=== PATIENT | female | born 1995 | race Caucasian/White ===

== ENCOUNTER 2016-07-03 20:06 | Emergency (ER) | payer MEDICARE | END 2016-07-03 23:18 | disposition home or self-care (01) | LOC: ER 20:06 | DX: R10.9 Unspecified abdominal pain (principal); R11.0 Nausea; G43.909 Migraine, unspecified, not intractable, without status migrainosus; Z98.51 Tubal ligation status | CPT/HCPCS: 36415; 96374; 96375 ==

== ENCOUNTER 2016-07-05 18:44 | Emergency (ER) | payer MEDICARE | END 2016-07-05 23:33 | disposition home or self-care (01) | LOC: ER 18:44 | DX: R10.12 Left upper quadrant pain (principal); D64.9 Anemia, unspecified; R11.0 Nausea; E07.9 Disorder of thyroid, unspecified; G43.909 Migraine, unspecified, not intractable, without status migrainosus | CPT/HCPCS: 36415; 96374; 96375; Q9963; Q9967 ==

== ENCOUNTER 2016-07-13 21:02 | Emergency (ER) | payer MEDICARE | END 2016-07-13 22:39 | disposition home or self-care (01) | LOC: ER 21:02 | DX: J20.9 Acute bronchitis, unspecified (principal); G43.909 Migraine, unspecified, not intractable, without status migrainosus; E07.9 Disorder of thyroid, unspecified ==

== ENCOUNTER 2016-07-20 20:52 | Emergency (ER) | payer MEDICARE | END 2016-07-20 22:42 | disposition home or self-care (01) | LOC: ER 20:52 | DX: R10.12 Left upper quadrant pain (principal); R11.0 Nausea; Z98.51 Tubal ligation status | CPT/HCPCS: 36415; 96374; 96375 ==

== ENCOUNTER 2016-07-27 13:08 | Emergency (ER) | payer MEDICARE | END 2016-07-27 14:36 | disposition home or self-care (01) | LOC: ER 13:08 | DX: G43.909 Migraine, unspecified, not intractable, without status migrainosus (principal); E07.9 Disorder of thyroid, unspecified; Z79.899 Other long term (current) drug therapy | CPT/HCPCS: 96374; 96375; J0780; J1200; J1885 ==